=== PATIENT | male | born 1975 | race Caucasian/White ===

== ENCOUNTER 2024-08-17 15:43 | Emergency (ER) | payer BC, SELFPAY ==
[2024-08-17 15:51] VITALS: BP 144/99
[2024-08-17 16:09] LABS: Hematocrit 38.6 % (39.0-52.0); Hemoglobin 13.8 g/dL (13.0-18.0); Mean Corp Hgb Conc. 35.8 g/dL (33.0-37.0); Mean Corpuscular Volume 84.3 fL (80.0-94.0); Nucleated Red Blood Cells % 0 % (-); Platelet Count 216 10^3/uL (130-400); Red Cell Dist. Width 11.9 % (11.5-14.5)
[2024-08-17 16:19] LABS: AST (SGOT) 20 U/L (17-59); Albumin 4.2 g/dl (3.5-5.0); Alkaline Phosphatase 55 U/L (38-126); Blood Urea Nitrogen 20 mg/dl (9-20); Carbon Dioxide 26 mmol/L (22-30); Chloride 109 mmol/L (98-107); Glucose 100 mg/dl (70-99); Potassium 4.0 mmol/L (3.5-5.1); Sodium 137 mmol/L (135-145); Total Protein 6.6 g/dl (6.3-8.2); eGFR > 60.00
[2024-08-17 16:29] LABS: ALT (SGPT) 21 U/L (0-50); Calcium 8.8 mg/dl (8.4-10.2)
[2024-08-17 16:31] LABS: Troponin I < 0.012 ng/ml
[2024-08-17 17:57] VITALS: BP 135/78
[2024-08-17 19:47] LABS: Troponin I < 0.012 ng/ml
[2024-08-17 20:00] VITALS: BP 129/92
[2024-08-17 20:52] VITALS: BP 132/79
[2024-08-17 21:00] VITALS: BP 141/90
--- NOTE | 2024-08-17 21:03 | ED.GENMED ---
History of Present Illness
General
Chief Complaint: Fainting Sensation
Source: patient and spouse (Spouse states that he did start a new protein drink recently)
Time Seen by Provider: 08/17/24 18:29
History of Present Illness
History of Present Illness:
Note:
CHIEF COMPLAINT(S)
Dizziness, chest heaviness, and shakiness.
HISTORY OF PRESENT ILLNESS
The patient is a 48-year-old male who reports the onset of dizziness and chest heaviness in the afternoon, approximately between 2:30 PM and 3:00 PM. The patient described feeling lightheaded after standing up from a seated position at his desk,
accompanied by heaviness in the chest that he had never experienced before, making him feel as though he might pass out. He had a sensation of warmth and fluttering in the chest, likened to 'my chest into my stomach.' The symptoms included
generalized shakiness, particularly in the stomach, chest, hands, and feet, and palpitations. The patient also experienced an episode of near syncopal sensation, which prompted his coworker to call emergency medical services. EMS noted the patient
had elevated blood pressure at 180/130 mmHg and a low blood sugar level. The patient denies previous episodes of chest pain, shortness of breath, or palpitations, except for a similar dizzy spell during dehydration. He reports minimal food intake
earlier in the day, consuming only a protein shake, a honey stinger waffle, coffee, and a liquid electrolyte drink. The patient notes improvement in symptoms approximately one hour prior to the current evaluation, with only mild residual tiredness.
SOCIAL HISTORY
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
REVIEW OF SYSTEMS
- Cardiovascular: Chest heaviness, palpitations.
- Neurological: Dizziness, no recent loss of consciousness.
- General: Fatigue, shakiness.
PHYSICAL EXAM
- General: The patient is awake, alert, and oriented to person, place, and time.
- Cardiovascular: Bradycardia at a rate of 52 beats per minute, regular rhythm, without murmurs. No jugular venous distention.
- Respiratory: Lungs are clear to auscultation bilaterally.
- Gastrointestinal: Abdomen is soft, non-tender, and non-distended.
- Neurological: Cranial nerves intact, no focal motor deficits observed.
- Extremities: Upper and lower extremities show no edema or cyanosis, warm and well-perfused.
PROBLEM LIST
Acute:
- Syncopal episode with associated dizziness and chest heaviness.
- Elevated blood pressure during episode.
- Palpitations and shakiness.
PLAN
1. Repeat cardiac enzyme testing to rule out myocardial damage.
2. Chest X-ray: To assess heart size, aorta, and for any possible abnormalities.
3. Consultation with cardiology for further evaluation, including potential stress test or additional cardiac monitoring if needed.
4. Monitor vital signs closely to ensure stability.
DIFFERENTIAL DIAGNOSIS
The Differential Diagnosis includes, in no particular order and is not limited to:
1. Syncope due to orthostatic hypotension.
2. Cardiac arrhythmia, such as atrial fibrillation or premature ventricular contractions.
3. Acute coronary syndrome.
4. Hypertensive crisis.
5. Electrolyte imbalance.
6. Dehydration-related syncope.
7. Anxiety or panic attack.
8. Vasovagal syncope.
9. Intracranial pathology (less likely without focal neurological signs).
10. Gastroesophageal reflux or esophageal spasm presenting as chest pressure.
CARE-UPDATE
08/17/24 - 21:[address] Acosta from cardiology; plan includes the application of a Holter monitor to assess cardiac rhythm, and further testing such as an echocardiogram and stress testing may be considered based on initial findings. Dr. Mejia to
follow up with patient tomorrow.
Disposition:
SUMMARY OF ENCOUNTER
A 48-year-old healthy male presented after experiencing near syncope and chest discomfort while at work. On evaluation, the patient reported no further complaints and had experienced no symptoms since arriving in the emergency department treatment
room. Telemetry monitoring showed occasional bradycardia with heart rates dipping to 50-52 bpm, but sinus rhythm with heart rate variability was maintained.
ASSESSMENT
Near syncope and chest discomfort possibly related to bradycardia episodes or other cardiac etiology.
MANAGEMENT OF THE PATIENTS CARE WAS DISCUSSED WITH
Case discussed with cardiology. Objective information reviewed together. The debug technician advised further testing including possible Holter monitoring and follow-up with cardiology tomorrow.
PLAN
1. Monitor the patient closely in the emergency department for any recurrence of symptoms.
2. Cardiology will conduct further evaluation with additional testing, including possible Holter monitoring.
INDEPENDENT REVIEW OF LABS AND INTERPRETATION OF TESTS
- My independent review of the EKG is normal.
- My independent review of troponin levels times two is normal.
- My independent review of the chest x-ray is normal.
- My independent review of CBC is normal.
- My independent review of CMP is normal.
PATIENT EDUCATION AND COUNSELING
The patient was informed about the possible causes of his symptoms and the importance of follow-up with cardiology. He was educated about recognizing and responding to potential recurrence of symptoms.
FOLLOW-UP INSTRUCTIONS
The patient is instructed to follow up with cardiology tomorrow.
MEDICAL DECISION MAKING
- Number and Complexity of Problems Addressed: Chronic conditions affecting care include possible arrhythmia or cardiac-related issues due to bradycardia. Differential Diagnosis includes:
1. Syncope due to orthostatic hypotension.
2. Cardiac arrhythmia, such as atrial fibrillation or premature ventricular contractions.
3. Acute coronary syndrome.
4. Hypertensive crisis.
5. Electrolyte imbalance.
6. Dehydration-related syncope.
7. Anxiety or panic attack.
8. Vasovagal syncope.
9. Intracranial pathology (less likely without focal neurological signs).
10. Gastroesophageal reflux or esophageal spasm presenting as chest pressure.
- Data:
Category 1:
- Tests and documents reviewed, including normal troponin levels, normal EKG, normal chest x-ray, normal CBC, and normal CMP.
Category 3:
- Discussion with cardiology about the case and follow-up plan, including potential Holter monitoring.
-Risk:
- Consideration of Admission/Observation: Escalation of care including admission/observation was considered given the complexity and risk of the patients presenting complaint and exam findings. However, ultimately the patient was deemed safe for
outpatient management with close follow-up. Reasoning: Work-up is reassuring and does not reveal any acute life/organ threatening processes, patients symptoms are well controlled upon reevaluation, reexamination is reassuring, vitals are stable, the
patient is agreeable with discharge, and reliable for follow-up.
DIAGNOSIS
- Syncope, unspecified (ICD-10: R55)
- Bradycardia, unspecified (ICD-10: R00.1)
Phy Exam
Physical Exam
Physical Exam:
.
Course
Orders/Labs/Results
Orders:
Orders
08/17/24 15:44
EKG [Electrocardiogram (*1)] Urgent
Reason for Study: Syncope
EKG- Treatment ONCE
08/17/24 15:59
Complete Blood Count/With Diff Urgent
Comprehensive Metabolic Panel Urgent
Lyme Progressive Urgent
Comment: ADD ON
Troponin I Urgent
08/17/24 19:04
CR Chest - 2 Views Urgent
Comment:
Reason For Exam: near syncope
08/17/24 19:14
Troponin I Urgent
08/17/24 20:34
Add On - Microbiology Urgent
Tests Added?: lyme progressive
08/17/24 20:52
D-Dimer Urgent
Abnormal Lab Results
08/17/24
15:59
RBC 4.58 L 10^6/uL
(4.70-6.10)
Hct 38.6 L %
(39.0-52.0)
Chloride 109 H mmol/L
(98-107)
Glucose 100 H mg/dl
(70-99)
08/17/24 15:59
08/17/24 15:59
Vital Signs
Initial and Last Documented VS:
Initial Vital Signs
Temp Pulse Resp BP Pulse Ox
98.2 F 61 18 144/99 100
08/17/24 15:51 08/17/24 15:51 08/17/24 15:51 08/17/24 15:51 08/17/24 15:51
Last Documented Vital Signs
Temp Pulse Resp BP Pulse Ox
98.2 F 59 16 129/92 100
08/17/24 15:51 08/17/24 20:02 08/17/24 19:22 08/17/24 20:00 08/17/24 17:57
*Pulse Oximetry
SaO2: 100
Oxygen Mode of Delivery: Room air
Patient hypoxic: no
*EKG
Interpreted by ED Provider?: Yes
Interpretation: normal
Rate: bradycardiac
Rhythm: sinus
[place]: normal axis
Interval: normal interval
QRS Pattern: normal QRS
Ischemia: no ischemia
*[employer] Interpretation
Rate: bradycardiac
Interpretation: normal
Rhythm: sinus
*Critical Care Note
Total Time (30-74mins, 75-104mins- exclusive of procedures): Not Applicable
ED Attending Note
-
Portions of this chart may have been created with voice recognition software.� Occasional wrong word or��sound alike� substitutions may have occurred due to the inherent limitations of voice recognition software.
Discharge Plan
Departure
Patient Disposition: Home (Routine Discharge)
Date of Disposition: 08/17/24
Time of Disposition: 21:08
Patient with high blood pressure during this ER visit?: No
Discharge Problem:
Near syncope, Chest pain
Instructions: Near Fainting (DC), Chest Pain DCA Follow Up
Referrals:
Humberto Garcia DO [Family Provider, Family Practice]
Activity Restrictions/Additional Instructions:
Please avoid strenuous or exertional activity until cleared by cardiology. Please see cardiology in the next 48 hours for reevaluation. Return immediately for worsening pain, shortness breath, palpitations, sweating, nausea, weakness of any kind,
numbness, tingling or any other concerns.
Cardiology has been notified and a follow up appointment has been requested. Someone will call you on the next business day to schedule a follow up appointment.
Interventions
Interventions:
*Risk Screen - Suicide Last Done: 08/17/24 15:51
*General Assessment Last Done: 08/17/24 15:51
*Neglect/Abuse Screening Last Done: 08/17/24 15:51
*ED- Fall Risk Assessment Last Done: 08/17/24 19:25
*ED COVID-19 Vaccine History Last Done: 08/17/24 19:25
ED- Cardiac Assessment Last Done: 08/17/24 19:24
ED- Neurological Assessment Last Done: 08/17/24 19:24
Discharge Date and Time
Print Language: SERBIAN
[2024-08-17 21:52] LABS: TSH 3.14 uIU/ml (0.47-4.68)
== END 2024-08-17 21:31 | disposition home or self-care (01) ==
LOC: EMR 15:43
PROVIDERS: EMERGENCY PHYSICIAN Emergency Medicine; FAMILY PHYSICIAN Family Medicine
DX: R55 Syncope and collapse (principal); R07.9 Chest pain, unspecified; R00.1 Bradycardia, unspecified
CPT/HCPCS: 99285; 71046; 80053; 84443; 84484; 85025; 86618; 93005

== ENCOUNTER → 2024-09-15 08:10 | Outpatient (REF) | payer BC, SELFPAY | LOC: HWRCS 08:10 | PROVIDERS: ATTENDING PHYSICIAN Internal Medicine Interventional Cardiology; FAMILY PHYSICIAN Family Medicine | DX: R00.2 Palpitations (principal); R07.89 Other chest pain | CPT/HCPCS: 93306 ==

== ENCOUNTER → 2024-09-29 09:12 | Outpatient (REF) | payer BC, SELFPAY | LOC: RCS 09:12 | PROVIDERS: ATTENDING PHYSICIAN Internal Medicine Interventional Cardiology; FAMILY PHYSICIAN Family Medicine | DX: R00.2 Palpitations (principal); R07.89 Other chest pain | CPT/HCPCS: 93017; 93350 ==